=== PATIENT | male | born 1960 | race Caucasian/White ===

== ENCOUNTER → 2020-01-12 | Outpatient (CLI) | payer BC ==
--- NOTE | 2020-01-12 07:47 | US ---
EXAMINATION TYPE: US prostate transrectal DATE OF EXAM: 01/12/2020 COMPARISON: us 05/30/2010 CLINICAL HISTORY: R97.20 PSA levels. This examination was performed using the transrectal probe. EXAM MEASUREMENTS: Gland Size: 4.7 x 3.3 x 4.7 cm Volume: 37.2 ml Predicted PSA: 4.5 Actual PSA (if available):4.4 Initial images of seminal vesicles are within normal limits. Prostate gland redemonstrated slightly e nlarged in size and heterogeneous in appearance with central calcifications in the transitional zone. No suspicious hypoechoic nodules. IMPRESSION: Persistent enlarged prostate gland consistent with BPH, no suspicious new hypoechoic nod ules however. Predicted PSA = volume x 0.12 ng/ml Calculated Volume = 0.5236 x L x W x H
== END | disposition home or self-care (01) ==
LOC: RADUSWWP 07:08
PROVIDERS: ATTEND Family Medicine
DX: R97.20 Elevated prostate specific antigen [PSA] (principal)
CPT/HCPCS: 76872

== ENCOUNTER → 2021-03-10 | Outpatient (CLI) | payer BC ==
--- NOTE | 2021-03-10 13:13 | US ---
EXAMINATION TYPE: US prostate transrectal DATE OF EXAM: 03/10/2021 COMPARISON: NONE CLINICAL HISTORY: Z80.42 FAM HX MALIGNANT NEOPLASM OF PROSTATE. This examination was performed using the transrectal probe. EXAM MEASUREMENTS: Gland Size: 4.7 x 3.0 x 4.7cm Volume: 33.9ml Predicted PSA: 4.1 Actual PSA (if available):4.5 Mildly enlarged heterogeneous gland IMPRESSION: No suspicious lesions identified. Predicted PSA = volume x 0.12 ng/ml Calculated Volume = 0.5236 x L x W x H
== END | disposition home or self-care (01) ==
LOC: RADUSWWP 09:20
PROVIDERS: ATTEND Family Medicine
DX: Z08 Encounter for follow-up examination after completed treatment for malignant neoplasm (principal); Z80.42 Family history of malignant neoplasm of prostate
CPT/HCPCS: 76872

== ENCOUNTER 2024-09-23 06:15 | Inpatient (IN) | payer BC, MEDICARE ==
[~2024-09-23 06:15] MED LIST: ALPRAZolam 0.25 MG TAB PO PRN; ALPRAZolam 0.5 MG TAB PO PRN; NITROGLYCERIN SL TABS 0.4 MG TAB SUBLINGUAL PRN
[2024-09-23] MEDS: IV FLUID CONTINUATION 1,000 ML IV ONE (06:50)
[2024-09-23] MEDS: SODIUM CHLORIDE 0.9% 1,000 ML in EMPTY BAG 1 BAG IV SCH ×2 (06:54→21:57)
[2024-09-23] MEDS: ASPIRIN 325 MG TAB PO STA (07:10)
[2024-09-23 07:34] LABS: Basophils % (A) 0 %; Eosinophils # (A) 0.3 k/uL (0-0.7); Eosinophils % (A) 5 %; HCT 46.7 % (39.0-53.0); HGB 15.4 gm/dL (13.0-17.5); Lymphocytes # (A) 1.7 k/uL (1.0-4.8); Lymphocytes % (A) 27 %; MCH 30.6 pg (25.0-35.0); MCHC 32.9 g/dL (31.0-37.0); MCV 92.8 fL (80.0-100.0); Mean Platelet Volume 7.3; Monocytes # (A) 0.6 k/uL (0-1.0); Monocytes % (A) 10 %; Neutrophils # (A) 3.4 k/uL (1.3-7.7); Neutrophils % (A) 56 %; Platelet Count 246 k/uL (150-450); RBC 5.03 m/uL (4.30-5.90); RDW 12.7 % (11.5-15.5); WBC 6.1 k/uL (3.8-10.6)
[2024-09-23 07:56] LABS: African American GFR (CKD) >90 (>60 ml/min/1.73 sqM); Anion Gap 7 mmol/L; Blood Urea Nitrogen 17 mg/dL (9-20); Calcium 8.9 mg/dL (8.4-10.2); Carbon Dioxide 27 mmol/L (22-30); Chloride 100 mmol/L (98-107); Glucose 107 mg/dL (74-99); Non-African American GFR(CKD) >90 (>60 ml/min/1.73 sqM); Potassium 4.9 mmol/L (3.5-5.1); Sodium 134 mmol/L (137-145)
[2024-09-23] MEDS: fentaNYL (PF) 50 MCG/ML 2 ML AMP IVP ONE ×2 (08:00→17:40)
[2024-09-23] MEDS: MIDAZOLAM 2 MG/2 ML VIAL IVP ONE ×4 (08:00→20:07)
[2024-09-23] MEDS: LIDOCAINE 1% INJ 10MG/ML (20 ML MDV) SQ ONE ×2 (08:02→17:33)
[2024-09-23] MEDS: VERAPAMIL SYRINGE (5 MG/10 ML) INTRAARTER ONE (08:04)
[2024-09-23] MEDS: HEPARIN SODIUM,PORCINE (1 ML) 2,500 UNIT in SODIUM CHLORIDE 0.9% 250 ML IRRIGATION ONE (08:07)
[2024-09-23] MEDS: HEPARIN SODIUM (1,000 UNIT/ML) 1,000 UNIT in SODIUM CHLORIDE 0.9% 1,000 ML IRRIGATION ONE (08:07)
[2024-09-23] MEDS: HEPARIN SODIUM 1,000 UN/ML (10ML VL) IVP ONE (08:11)
[2024-09-23] MEDS: IOPAMIDOL-370 100ML BTL INJ ONE ×3 (08:41→20:46)
--- NOTE | 2024-09-23 09:38 | CC ---
CARDIAC CATHETERIZATION REPORT INDICATIONS: This is a 64-year-old gentleman with history of [id number] aortic stenosis, hypertension, and dyslipidemia, who presented to me with symptoms of exertional chest pain and had an abnormal treadmill stress test due to which, I advised him to undergo cardiac catheterization for further evaluation. He had been explained of the risks, benefits and alternatives, understood and accepted. PROCEDURE NOTE: After obtaining informed consent, left heart catheterization and coronary angiogram were performed via the right radial artery using standard Yelitza catheters. The patient tolerated the procedure well without any obvious immediate complications. The patient received moderate conscious sedation. Total sedation time was 24 minutes. Right radial artery access was obtained using modified Seldinger technique, 6-Portuguese sheath was placed. Catheters and wires were floated into the ascending aorta under fluoroscopic guidance. FINDINGS: Hemodynamics: 1. Central aortic pressure is 140/70 mm. 2. Left ventriculogram: Left ventriculogram is not performed. ANGIOGRAPHIC DATA: 1. Right coronary artery: Right coronary artery is a large dominant vessel, appears heavily calcified, shows a focal 90% stenosis in the proximal RCA. 2. Left main coronary artery is a short vessel, divides into left anterior descending coronary artery and circumflex coronary artery. Circumflex coronary artery before it bifurcates into an OM and AV groove circ, has a 70% to 80% stenosis. LAD is free of significant disease. The calcified vessel gives off a blood vessel that almost is parallel to the LAD, does not quite reach the apex, appears like separate large septal yarn examiner skeins that has a tight stenosis in the ostial portion. CONCLUSIONS: Severe 2-vessel coronary artery disease with a lesion in the ostial portion of the septal yarn examiner skeins as described above. I reviewed angiographic data with the patient and the on-call core measures abstractor, Dr. Thompson. Dr. Thompson felt that the patient would benefit from catheter-based revascularization of the right coronary artery and circumflex coronary artery. I reviewed these issues at length with the patient. He understands and in agreement with the plans. The patient has aortic stenosis, but the most recent echocardiogram on him, which shows normal LV function, mild aortic regurgitation with [id number] aortic . The mean gradient across the valve was 16 mm. MMODL / IJN: [id number] /
[2024-09-23] MEDS: IV FLUID CONTINUATION 950 ML IV ONE (16:56)
[2024-09-23] MEDS: HEPARIN SODIUM,PORCINE 10,000 UNIT in SODIUM CHLORIDE 0.9% 1,000 ML IRRIGATION PRN (17:01)
[2024-09-23] MEDS: HEPARIN SODIUM,PORCINE (1 ML) 2,500 UNIT in SODIUM CHLORIDE 0.9% 250 ML IRRIGATION PRN (17:02)
[2024-09-23] MEDS: HEPARIN SODIUM 1,000 UN/ML (10ML VL) IV ONE (17:44)
[2024-09-23] MEDS: TICAGRELOR 90 MG TAB PO ONE (17:47)
[2024-09-23] MEDS: MORPHINE SULFATE 4 MG/ML SYRINGE IVP ONE (18:03)
[2024-09-23] MEDS: METOPROLOL TARTRATE 5 MG/5 ML VIAL IVP ONE ×4 (18:06→20:49)
[2024-09-23] MEDS: FUROSEMIDE 10 MG/ML 4 ML VIAL IVP ONE (18:08)
[2024-09-23] MEDS: DILTIAZEM 125 MG in SODIUM CHLORIDE 0.9% 100 ML IV SCH (18:38)
--- NOTE | 2024-09-23 20:47 | P.PCN ---
Date of Procedure: 09/23/24 Operative Findings: PERCUTANEOUS CORONARY INTERVENTION Performing physician Paresh Thompson M.D. Procedure Performed: 1. Stenting of the proximal RCA using 3.5 x 23 Xience drug-eluting stent 2. Adjunctive use of IVUS 3. Ultrasound-guided access of the right common femoral artery and selective right common femoral artery angiogram Indication: Severe two-vessel CAD in the symptomatic 64-year-old gentleman who underwent a heart catheterization earlier and that showed critical disease involving a heavi ly calcified and tortuous RCA and severe disease involving the proximal left circumflex Approach: Common femoral artery Complications: Right coronary cusp dissection with dissection extended to the right coronary artery with STEVEN I flow Level of Sedation: Moderate with a sedation length of 3 hours Procedure Discussion: After obtaining informed consent the patient was brought to the cardiac [employer]. From the get go we decided to use a 7 Australian system and with that being said we decided to go from the right common femoral artery. The right common femoral artery was cannulated using micropuncture technique under ultrasound guidance the micropuncture wire passed easily then I placed a 7 Australian 11 cm sheath at the right common femoral artery. Subsequently anticoagulation at that point was initiated using heparin with continuous ACT monitoring. I did engage the RCA using initially an AL 0.757 Australian guiding catheter. I did engage the RCA extremely easily with no difficulties. I did wire the RCA using a whisper wire. The RCA was wired easily as well. Subsequently I did advance an IVUS catheter to the RCA but the IVUS catheter went only to the very proximal portion of the right coronary artery which showed a diameter around 3.5 mm. After that I attempt advancing 2.0 mm noncompliant balloon but the balloon would not cross the lesion in the proximal to mid right coronary artery because that portion was extremely tortuous and calcified. I did not attempt to do atherectomy just because the RCA was extremely tortuous and I would avoid taking any risk of perforation of the right coronary artery. After that I did attempt advance 1.5 mm balloon but the balloon would not cross. Attempting advancing 1 mm balloon the balloon would not cross. At that point I decided to go ahead and do exchanged my wire into a stiffer wire like run-through wire or BMW wire. Attempting advancing Corsair catheter was unsuccessful and the catheter would not make the turn in the very proximal to mid right coronary artery. Subsequently attempting using another catheter like super cross catheter was also unsuccessful. Please note that using the balloons was attempted also using GuideLiner. During the case I noticed there was dye staining in the right coronary cusp. I am not quite sure if the dissection was created by the GuideLiner or by the guiding catheter. We lost the flow in the right coronary artery as well because I believe that the dissection extended all the way to the mid right coronary artery. Attempting doing balloon angioplasty to restore the flow to the right coronary artery was unsuccessful because I could not advance any balloon beside the 1.5 and 1 mm and subsequently 2 mm balloon to the proximal to mid right coronary artery. At that point attempting again exchanged my whisper wire into another wire using microcatheter was successful and I did place an Ironman for better support. Attempting ballooning again of the RCA over the Ironman ended by the guiding dislodging outside the ostial of the right coronary artery and at that point I decided to use another guiding catheter and that was an ART guiding catheter. Attempting wiring the right coronary artery was extremely hard because the wire was going to the dissection plane but finally I was able to get a Choice PT wire. With that I was able to advance 2 mm semicompliant balloon by 8 mm balloon. I did balloon angioplasty of the right coronary artery but an angiogram was performed and showed dye staining in the distal right coronary artery appeared to be not moving and consistent with possible dissection. I inflated the balloon in the distal right coronary artery just for possible perforation and I did an ultrasound and that showed no pericardial effusion. The patient was stable. He was also scheduled to undergo PCI of the left circumflex coronary artery with giving the time of the case and the radiation and the fluoroscopy and the fatigue I decided to do the angioplasty on different session. Please note that the patient was asymptomatic throughout the case and was hemodynamically stable. throughout the case as well. Please note that before I did the last balloon angioplasty over the Choice PT wire I did IVUS of the RCA and the catheter went all the way down to the distal right coronary artery and I was in the true lumen. After that an echocardiogram officially was performed and showed normal LV systolic function with no evidence of wall motion abnormalities noted with no evidence of pericardial effusion noted as well with possible dissection flap involving the right coronary cusp which was identified under fluoroscopy before. The patient will need to undergo a CTA for further clarification. Postprocedure Management: 1. Obtain a CTA or transesophageal echocardiogram 2. Aggressive blood pressure control 3. Follow-up with the patient
[2024-09-23] MEDS ORDERED: NITROGLYCERIN SL TABS 0.4 MG TAB SUBLINGUAL PRN (20:48)
[2024-09-23] MEDS ORDERED: MAG HYDROX/AL HYDROX/SIMETH 30 ML CUP PO PRN (20:48)
[2024-09-23] MEDS ORDERED: ATROPINE SULFATE 0.1 MG/ML 10ML SYRINGE IV PRN (20:48)
[2024-09-23] MEDS ORDERED: ZOLPIDEM 5 MG TAB PO PRN (20:48)
[2024-09-23] MEDS ORDERED: RX INFO: IV CONTRAST WAS GIVEN 1 EACH MISC MISCELLANE PRN (20:48)
[2024-09-23 21:22] LABS: Glucose,Whole Blood 135 mg/dL (70-110)
[2024-09-23] MEDS: NITROGLYCERIN-D5W PMX 50 MG in DEXTROSE/WATER 1 250ML.BAG IV SCH (21:51)
[2024-09-23] MEDS: ATORVASTATIN 80 MG TAB PO STA (21:59)
[2024-09-23] MEDS: CLEVIDIPINE BUTYRATE 25 MG in EMPTY BAG 1 BAG IV SCH (23:11)
[2024-09-24] MEDS ORDERED: Magnesium Replacement Protocol 1 EACH MISC MISCELLANE PRN (00:02)
[2024-09-24] MEDS ORDERED: Potassium Replacement Protocol 1 EACH MISC MISCELLANE PRN (00:02)
[2024-09-24] MEDS ORDERED: NALOXONE 0.4 MG/ML 1 ML VIAL IV PRN (00:02)
--- NOTE | 2024-09-24 01:06 | CT ---
EXAM: CT Angiography Chest With Intravenous Contrast CLINICAL HISTORY: ITS.REASON CT Reason: aortic dissection TECHNIQUE: Axial computed tomographic angiography images of the chest with intravenous contrast. CTDI is 49.8 mGy and DLP is 529.2 mGy-cm. This CT exam was performed using one or more of the following dose reduction techniques: automated exposure control, adjustment of the mA and/or kV according to patient size, and/or use of iterative reconstruction technique. MIP reconstructed images were created and reviewed. COMPARISON: No relevant prior studies available. FINDINGS: Pulmonary arteries: No evidence of pulmonary embolism. Aorta: No evidence of aortic dissection. 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 Aortic calcifications. Irregular plaque and calcifications of the descending thoracic aorta. Lungs: Bibasilar atelectasis. No mass. Pleural space: Unremarkable. No significant effusion. No pneumothorax. Heart: Marked coronary calcifications. No cardiomegaly. No significant pericardial effusion. No evidence of RV dysfunction. Bones/joints: No acute fracture. No dislocation. Soft tissues: Unremarkable. Lymph nodes: Unremarkable. No enlarged lymph nodes. IMPRESSION: 1. No evidence of acute abnormality. 2. 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 3. Irregular plaque and calcifications of the descending thoracic aorta. 4. Marked coronary calcifications.
[2024-09-24] MEDS: LABETALOL 200 MG in SODIUM CHLORIDE 0.9% 160 ML IV SCH (04:01)
[2024-09-24 05:59] LABS: Glucose,Whole Blood 137 mg/dL (70-110)
[2024-09-24] MEDS: carvediloL 3.125 MG TAB PO SCH (06:43)
[2024-09-24] MEDS: MORPHINE SULFATE 2 MG/ML SYRINGE IVP PRN (06:43)
[2024-09-24] MEDS: TICAGRELOR 90 MG TAB PO SCH (06:58)
[2024-09-24 07:01] LABS: Basophils % (A) 0 %; Eosinophils % (A) 0 %; HCT 45.6 % (39.0-53.0); Lymphocytes # (A) 0.8 k/uL (1.0-4.8); Lymphocytes % (A) 6 %; MCH 29.1 pg (25.0-35.0); MCHC 30.7 g/dL (31.0-37.0); MCV 94.7 fL (80.0-100.0); Mean Platelet Volume 6.7; Monocytes # (A) 0.8 k/uL (0-1.0); Monocytes % (A) 6 %; Neutrophils # (A) 11.5 k/uL (1.3-7.7); Neutrophils % (A) 87 %; Platelet Count 220 k/uL (150-450); RBC 4.82 m/uL (4.30-5.90); RDW 12.6 % (11.5-15.5); WBC 13.1 k/uL (3.8-10.6)
[2024-09-24 07:17] LABS: ALT 46 U/L (4-49); AST 50 U/L (17-59); African American GFR (CKD) >90 (>60 ml/min/1.73 sqM); Albumin 3.8 g/dL (3.5-5.0); Alkaline Phosphatase 53 U/L (38-126); Anion Gap 12 mmol/L; Blood Urea Nitrogen 17 mg/dL (9-20); Calcium 8.5 mg/dL (8.4-10.2); Carbon Dioxide 19 mmol/L (22-30); Chloride 103 mmol/L (98-107); Glucose 135 mg/dL (74-99); Magnesium 1.9 mg/dL (1.6-2.3); Non-African American GFR(CKD) >90 (>60 ml/min/1.73 sqM); Potassium 4.3 mmol/L (3.5-5.1); Sodium 134 mmol/L (137-145); Total Bilirubin 0.6 mg/dL (0.2-1.3); Total Protein 6.2 g/dL (6.3-8.2)
[2024-09-24] MEDS: MAGNESIUM SULFATE-D5W PMX 1 GM in DEXTROSE/WATER 1 100ML.BAG IVPB ONE (09:00)
[2024-09-24] MEDS: PANTOPRAZOLE 40 MG TABLET PO SCH (09:00)
[2024-09-24 11:29] VITALS: BMI 27.6
--- NOTE | 2024-09-24 12:24 | CA ---
Transthoracic Echo Report Name: Aiden Chaney Age: 64 Gender: M : 1960 Exam Date: 09/23/2024 20:30 Exam Location: [facility] Ht (in): 66 Wt (lb): 184 Ordering Physician: Paresh Thompson MD Attending/Referring Phys: [employer] Mechanic Corinna Palma RDCS Procedure CPT: Indications: possible dissection Cardiac Hx: Limited for pericardial effusion and LVEF per Dr. Thompson Technical Quality: Good Contrast 1: Total Dose (mL): Contrast 2: Total Dose (mL): MEASUREMENTS (Male / Female) Normal Values 2D ECHO LV Diastolic Diameter PLAX 3.8 cm 4.2 - 5.9 / 3.9 - 5.3 cm LV Systolic Diameter PLAX 2.6 cm IVS Diastolic Thickness 1.4 cm 0.6 - 1.0 / 0.6 - 0.9 cm LVPW Diastolic Thickness 1.0 cm 0.6 - 1.0 / 0.6 - 0.9 cm LV Relative Wall Thickness 0.6 FINDINGS Left Ventricle Left ventricular ejection fraction is estimated at 55-60 %. No obvious regional wall motion abnormalities. Right Ventricle Right Atrium Left Atrium Mitral Valve Aortic Valve Tricuspid Valve Pulmonic Valve Pericardium No pericardial effusion. Aorta CONCLUSIONS Limited echo. Normal left ventricular size and systolic function No evidence of pericardial effusion Previewed by: Dr. Arya Mendoza MD (Electronically Signed) Final Date: 24 September 2024 12:23
[2024-09-24 19:35] VITALS: RESP 16
[2024-09-25 08:03] VITALS: TEMP 97.9
[2024-09-25] MEDS: RANOLAZINE 500 MG TAB.ER.12H PO SCH (09:58)
[2024-09-25] MEDS: ASPIRIN 81 MG PO SCH (09:58)
[2024-09-25] MEDS: ISOSORBIDE MONONITRATE ER 15 MG TAB PO SCH (09:58)
--- NOTE | 2024-09-25 10:11 | P.DS ---
Providers Date of admission: 09/23/24 06:16 Attending physician: Frank Moe Consults: 09/23/24 20:48 Consult Physician Routine Consulting Provider: [facility] Consult Reason/Comments: Post Interventional patient Do you want consulting provider notified?: Already Contacted Primary care physician: Gaetano Suero [facility] Course: 64-year-old male known to Dr. Linares. He has seen him in the outpatient office where he had a treadmill based stress test which showed abnormal EKG. For this he had a heart catheterization done yesterday. Heart catheterization showed severe two-vessel disease involving RCA and LCx. Dr. Duque tried to perform intervention on RCA and LCx however both the arteries were heavily calcified and very tortuous. Intraoperatively there was concerns of possible RCA dissection. Patient had a follow-up echocardiogram which did not show any pericardial effusion or any new wall motion abnormality or any worsening LVEF. He also had a CTA chest to rule out for any extension of dissection which did not show any evidence of dissection however showed ascending aorta measured at 4.1 cm. There was significant calcification and atheroma noticed in descending aorta. On discharge his medication should be aspirin 81 mg, Lipitor 40 mg, Brilinta 90 mg twice daily, Coreg 3.125 mg twice daily, Imdur 50 mg daily, Ranexa 500 mg twice daily. Also recommend PAD screening with carotid Dopplers and ABIs on outpatient basis. Recommend outpatient follow-up with Dr. Linares To be discharged from cardiac standpoint Smoking cessation and alcohol cessation. He was smoking and drinking heavy until 1 month ago. Assessment: Abnormal stress test Severe two-vessel CAD involving RCA and LCx Iatrogenic RCA dissection, which is contained with no significant complications Essential hypertension Smoking, alcohol use Plan - Discharge Summary Discharge Rx Participant: Yes New Discharge Prescriptions: No Action Isosorbide Mononitrate ER [Imdur] 30 mg PO DAILY Atorvastatin [Lipitor] 40 mg PO HS Aspirin EC [Ecotrin Low Dose] 81 mg PO DAILY Discharge Medication List Aspirin EC [Ecotrin Low Dose] 81 mg PO DAILY 09/18/24 [History] Atorvastatin [Lipitor] 40 mg PO HS 09/18/24 [History] Isosorbide Mononitrate ER [Imdur] 30 mg PO DAILY 09/18/24 [History] Follow up Appointment(s)/Referral(s): Frank Moe MD [STAFF PHYSICIAN] - 09/30/24 4:00 pm (FOLLOW UP APPOINTMENT MADE. )
[2024-09-25 11:44] VITALS: BP 137/77; PULSE 66
[2024-09-25] MEDS ORDERED: ATORVASTATIN 40 MG TAB PO SCH (21:00)
== END 2024-09-25 16:45 | disposition home or self-care (01) | DRG 322 ==
LOC: CATHCVL 06:15 → 2SICU 06:16 → 3SCARD 09-24 12:13
PROVIDERS: ADMIT Internal Medicine Cardiovascular Disease; ATTEND Internal Medicine Cardiovascular Disease
PROC: 4A023N7 Measurement of Cardiac Sampling and Pressure, Left Heart, Percutaneous Approach (ICD-10-PCS; 2024-09-23)
PROC: B2111ZZ Fluoroscopy of Multiple Coronary Arteries using Low Osmolar Contrast (ICD-10-PCS; 2024-09-23)
PROC: 027034Z Dilation of Coronary Artery, One Artery with Drug-eluting Intraluminal Device, Percutaneous Approach (ICD-10-PCS; principal; 2024-09-23 07:30)
PROC: B240ZZ3 Ultrasonography of Single Coronary Artery, Intravascular (ICD-10-PCS; 2024-09-23 15:10)
DX: I25.119 Atherosclerotic heart disease of native coronary artery with unspecified angina pectoris (principal); E78.2 Mixed hyperlipidemia; I10 Essential (primary) hypertension; I35.0 Nonrheumatic aortic (valve) stenosis; F17.210 Nicotine dependence, cigarettes, uncomplicated; Z82.49 Family history of ischemic heart disease and other diseases of the circulatory system; Z79.899 Other long term (current) drug therapy; Z79.82 Long term (current) use of aspirin
CPT/HCPCS: 71275; 80048; 80053; 83735; 84484; 85025; 92978; 93308; 93458

== ENCOUNTER → 2024-09-30 | Outpatient (CLI) | payer MEDICARE ==
[2024-09-30 18:47] LABS: HCT 39.1 % (39.6-50.0); MCH 30.4 pg (27.0-32.0); MCHC 33.2 g/dL (32.0-37.0); MCV 91.4 FL (80.0-97.0); Mean Platelet Volume 9.6 FL (9.5-12.2); NRBC Per 100 WBC 0 X 10*3/uL (0.00-0.01); Platelet Count 277 X 10*3/uL (140-440); RBC 4.28 X 10*6/uL (4.40-5.60); RDW 12.3 % (11.5-14.5); WBC 7.28 X 10*3/uL (4.50-10.00)
[2024-09-30 19:02] LABS: BUN/Creat Ratio 19.62 Ratio (12.00-20.00); Blood Urea Nitrogen 15.7 mg/dL (9.0-27.0); Calcium 8.9 mg/dL (8.7-10.3); Carbon Dioxide 24.8 mmol/L (21.6-31.8); Chloride 101 mmol/L (96-109); Glucose 111 mg/dL (70-110); Potassium 4.6 mmol/L (3.5-5.5); Sodium 137 mmol/L (135-145)
== END | disposition home or self-care (01) ==
LOC: LABWHC1 14:02
PROVIDERS: ATTEND Internal Medicine Cardiovascular Disease
DX: I25.10 Atherosclerotic heart disease of native coronary artery without angina pectoris (principal)
CPT/HCPCS: 36415; 80048; 85027

== ENCOUNTER 2024-11-05 09:55 | Day surgery (SDC) | payer MEDICARE ==
[2024-11-05] MEDS: IV FLUID CONTINUATION 1,000 ML IV ONE (10:06)
[2024-11-05] MEDS: ASPIRIN 325 MG TAB PO STA (10:19)
[2024-11-05] MEDS: SODIUM CHLORIDE 0.9% 1,000 ML in EMPTY BAG 1 BAG IV SCH ×2 (10:19→16:56)
[2024-11-05 10:33] LABS: Basophils # (A) 0.06 10*3/uL (0.00-0.10); Basophils % (A) 1.2 %; Eosinophils # (A) 0.37 10*3/uL (0.04-0.35); Eosinophils % (A) 7.2 %; HCT 43.8 % (39.6-50.0); HGB 15.1 g/dL (13.0-17.0); Lymphocytes # (A) 1.32 10*3/uL (0.90-5.00); Lymphocytes % (A) 25.6 %; MCH 30.5 pg (27.0-32.0); MCHC 34.5 g/dL (32.0-37.0); MCV 88.5 fL (80.0-97.0); Mean Platelet Volume 9.4 fL (9.5-12.2); Monocytes # (A) 0.68 10*3/uL (0.20-1.00); Monocytes % (A) 13.2 %; Neutrophils # (A) 2.71 10*3/uL (1.80-7.70); Neutrophils % (A) 52.4 %; Platelet Count 244 10*3/uL (140-440); RBC 4.95 10*6/uL (4.40-5.60); RDW 12.4 % (11.5-14.5); WBC 5.16 10*3/uL (4.50-10.00)
[2024-11-05 10:56] LABS: African American GFR (CKD) >90 (>60 ml/min/1.73 sqM); Anion Gap 5 mmol/L; Blood Urea Nitrogen 13 mg/dL (9-20); Calcium 8.9 mg/dL (8.4-10.2); Carbon Dioxide 25 mmol/L (22-30); Chloride 100 mmol/L (98-107); Glucose 109 mg/dL (74-99); Non-African American GFR(CKD) >90 (>60 ml/min/1.73 sqM); Potassium 4.4 mmol/L (3.5-5.1); Sodium 130 mmol/L (137-145)
[2024-11-05] MEDS: MIDAZOLAM 2 MG/2 ML VIAL IVP ONE (13:28)
[2024-11-05] MEDS: fentaNYL (PF) 50 MCG/1 ML VIAL IVP ONE (13:28)
[2024-11-05] MEDS: HEPARIN SODIUM,PORCINE 10,000 UNIT in SODIUM CHLORIDE 0.9% 1,000 ML IRRIGATION PRN (13:28)
[2024-11-05] MEDS: HEPARIN SODIUM,PORCINE (1 ML) 2,500 UNIT in SODIUM CHLORIDE 0.9% 250 ML IRRIGATION PRN (13:28)
[2024-11-05] MEDS: LIDOCAINE 1% INJ 10MG/ML (20 ML MDV) SQ ONE (14:16)
[2024-11-05] MEDS: HEPARIN SODIUM 1,000 UN/ML (10ML VL) IVP ONE (14:24)
[2024-11-05] MEDS: IOPAMIDOL-370 100ML BTL INJ ONE (14:53)
[2024-11-05] MEDS ORDERED: ZOLPIDEM 5 MG TAB PO PRN (14:58)
[2024-11-05] MEDS ORDERED: NITROGLYCERIN SL TABS 0.4 MG TAB SUBLINGUAL PRN (14:58)
[2024-11-05] MEDS ORDERED: MAG HYDROX/AL HYDROX/SIMETH 30 ML CUP PO PRN (14:58)
[2024-11-05] MEDS ORDERED: RX INFO: IV CONTRAST WAS GIVEN 1 EACH MISC MISCELLANE PRN (14:58)
[2024-11-05] MEDS ORDERED: ATROPINE SULFATE 0.1 MG/ML 10ML SYRINGE IV PRN (14:58)
--- NOTE | 2024-11-05 15:03 | P.PCN ---
Date of Procedure: 11/05/24 Operative Findings: PERCUTANEOUS PERIPHERAL INTERVENTION Performing physician Paresh Thompson M.D. Procedure performed 1. Successful stenting of the proximal left circumflex using 4.0 x 18 mm Xience HOWIE which was postdilated using 4.5 mm NC balloon with an excellent angiographic result 2. Successful balloon angioplasty of the first obtuse marginal branch of the left circumflex 3. Adjunctive use of IVUS 4. Ultrasound-guided access of the right common femoral artery and selective right common femoral artery angiogram Indication Severe coronary artery disease involving the proximal left circumflex in this 58-year-old gentleman who was asymptomatic Approach Right common femoral artery Complications None Level of sedation Moderate with a sedation time of 35 minutes Procedure description Please refer to diagnostic heart catheterization was performed few weeks ago. The right common femoral artery was cannulated using micropuncture technique under ultrasound guidance a micropuncture wire passed easily then I placed a 6 Slovenian 11 cm sheath at the right common femoral artery and at that point started anticoagulation using heparin with continuous ACT monitoring. I did engage the left main using JL 3.5 guiding catheter. I did wired the left circumflex using a run-through wire and OM1 using a whisper wire. IVUS of the left circumflex was performed and showed not very calcified artery with a diameter around 4 mm and 4.5 mm proximally. I did predilated the left circumflex using 3.5 mm balloon and I did predilated the OM1 using also 3.5 mm balloon and both were noncompliant balloon. After that I stented the proximal left circumflex across OM1 using 4.0 x 18 mm stent which was positioned under fluoroscopy guidance and deployed under fluoroscopy guidance and postdilated proximally using 4.5 mm NC balloon with final angiogram showed good angiographic results with STEVEN-3 flow in both the left circumflex and OM1. The procedure was completed with no complication. After that I did selective right common femoral artery angiogram before I deployed the Angio-Seal device. The procedure was completed with no complication Postprocedure management 1. Dual antiplatelet therapy 2. Aggressive cholesterol control 3. Risk factors modification 4. Follow-up with the patient
[2024-11-05] MEDS: carvediloL 3.125 MG TAB PO SCH (16:58)
[2024-11-05] MEDS: amLODIPine 5 MG TAB PO SCH (18:57)
[2024-11-05] MEDS: hydrALAZINE HCL 25 MG TAB PO SCH (18:57)
[2024-11-05] MEDS: ATORVASTATIN 40 MG TAB PO SCH (20:32)
[2024-11-05] MEDS: TICAGRELOR 90 MG TAB PO SCH (20:32)
[2024-11-05] MEDS: RANOLAZINE 500 MG TAB.ER.12H PO SCH (20:32)
[2024-11-05] MEDS ORDERED: TICAGRELOR 90 MG TAB PO SCH (21:00)
[2024-11-06 06:05] LABS: African American GFR (CKD) >90 (>60 ml/min/1.73 sqM); Non-African American GFR(CKD) >90 (>60 ml/min/1.73 sqM)
[2024-11-06] MEDS: ASPIRIN 81 MG PO SCH (08:12)
[2024-11-06] MEDS: ISOSORBIDE MONONITRATE ER 30 MG TAB.ER.24H PO SCH (08:12)
[2024-11-06 08:20] VITALS: RESP 18; TEMP 97.7
--- NOTE | 2024-11-06 08:38 | P.DS ---
Providers Attending physician: Paresh Thompson Consults: 11/05/24 14:58 Consult Physician Routine Consulting Provider: [facility] Consult Reason/Comments: Post Interventional patient Do you want consulting provider notified?: Already Contacted Primary care physician: Stated None Hospital Course: The patient is a 64-year-old gentleman who underwent yesterday and elective PCI of the left circumflex with a good angiographic results He was seen and evaluated this morning. The patient is asymptomatic and hemodynamically stable. The patient will be discharged home on dual antiplatelet therapy and he will follow-up with Dr. Moe in the office his primary radiologist physician Plan - Discharge Summary Discharge Rx Participant: No New Discharge Prescriptions: Continue Ticagrelor [Brilinta] 90 mg PO BID 90 Days #180 tab carvediloL [Coreg] 3.125 mg PO BID-W/MEALS 90 Days #180 tab Aspirin EC [Ecotrin Low Dose] 81 mg PO DAILY Atorvastatin [Lipitor] 40 mg PO HS 90 Days #90 tab Ranolazine [Ranexa] 500 mg PO Q12HR 90 Days #180 tab Isosorbide Mononitrate ER [Imdur] 30 mg PO DAILY 90 Days #90 tab Discharge Medication List Aspirin EC [Ecotrin Low Dose] 81 mg PO DAILY 09/18/24 [History] Atorvastatin [Lipitor] 40 mg PO HS 90 Days #90 tab 09/25/24 [Rx] Isosorbide Mononitrate ER [Imdur] 30 mg PO DAILY 90 Days #90 tab 09/25/24 [Rx] Ranolazine [Ranexa] 500 mg PO Q12HR 90 Days #180 tab 09/25/24 [Rx] Ticagrelor [Brilinta] 90 mg PO BID 90 Days #180 tab 09/25/24 [Rx] carvediloL [Coreg] 3.125 mg PO BID-W/MEALS 90 Days #180 tab 09/25/24 [Rx] Follow up Appointment(s)/Referral(s): Frank Moe MD [STAFF PHYSICIAN] - 11/12/24 9:45 am (FOLLOW UP APPOINTMENT MADE. )
[2024-11-06 09:45] VITALS: BP 163/81; PULSE 60
== END 2024-11-06 11:07 | disposition home or self-care (01) ==
LOC: CATHCVL 09:55 → 6NMEDSUR 14:50 → CATHCVL 11-06 11:07
PROVIDERS: ATTEND Internal Medicine Interventional Cardiology
DX: I25.10 Atherosclerotic heart disease of native coronary artery without angina pectoris (principal); I10 Essential (primary) hypertension; E78.2 Mixed hyperlipidemia; Z88.0 Allergy status to penicillin; Z79.02 Long term (current) use of antithrombotics/antiplatelets; Z79.82 Long term (current) use of aspirin
CPT/HCPCS: 99152; 99153; 92978; 92921; 80048; 82565; 85025; C9600; C1760; C1769 ×3; C1887; C1894; C1753; C1725 ×2; J2250; J1644 ×3; J2003; Q9967; J3010